=== PATIENT | female | born 1955 | race Caucasian/White ===

== ENCOUNTER → 2019-05-07 15:20 | Oncology outpatient (ONC) | payer OTHER, SELFPAY ==
[2019-01-08 15:57] VITALS: BP 143/93; PULSE 80; RESP 20; TEMP 36.8; O2SAT 98
--- NOTE | 2019-01-08 16:13 | ONC.PN ---
PN -Subjective Interval history: Diagnosis: Marginal zone lymphoma involving the lung Previous treatment: 1. Six cycles of Treanda and Rituxan finishing September 2013 2. One cycle of maintenance Rituxan in 2013 stopping because of prolonged cytopenias Interval history: The patient is a 63-year-old woman who has been previously seen in [place]. She has a history of a marginal zone lymphoma with a large pulmonary mass. She was treated with chemotherapy in 2012 and 2013 and has been in remission ever since. Last summer, she was found to have some enlarging pulmonary nodules that were indeterminate. A needle biopsy in March showed evidence of inflammation but no evidence of a monoclonal B-cell or T-cell process by flow cytometry. Follow-up CT in June showed stable nodules. Since then, she has been feeling generally well. She denies any new aches or pains. No shortness of breath or cough. She has not noticed any adenopathy. Appetite and energy level have been stable. No fevers chills or sweats. She was found to have a recent sinus infection and has been on a course of Augmentin for that. Her other medications include bupropion and hydrochlorothiazide. Home Medications and Allergies Home Medications Medication Instructions Recorded Confirmed Type bupropion HCl [Wellbutrin SR] 150 mg BID 01/08/19 01/08/19 History hydrochlorothiazide 12.5 mg PO DAILY 01/08/19 01/08/19 History Allergies Allergy/AdvReac Type Severity Reaction Status Date / Time codeine AdvReac Rash Verified 01/08/19 15:40 simvastatin AdvReac Rash Verified 01/08/19 15:39 Exam Vital signs: Vital Signs Temp Pulse Resp BP Pulse Ox 01/08/19 15:57 98.2 F 80 20 143/93 H 98 Intake and Output 01/08/19 01/08/19 01/08/19 07:59 15:59 23:59 Other: Weight 85.3 kg Patient Weight 01/08/19 23:59 Weight 85.3 kg - Constitutional positive no acute distress, positive average body habitus - Routine HEENT Exam Head: Present: normocephalic, atraumatic Eye: Present: EOMI, PERRL. Absent: conjunctival icterus, scleral injection ENT: Present: mucous membranes moist, oropharynx clear - Routine Neck Exam Present: supple. Absent: lymphadenopathy, thyromegaly - Routine Chest/Breast/Axilla Exam Axillae: Absent: lymphadenopathy - Routine Respiratory Exam Present: Clear to auscultation bilaterally. Absent: rales, wheezes - Routine Cardiovascular Exam Present: RRR, S1, S2. Absent: murmur - Routine Abdominal Exam Present: soft, normoactive bowel sounds. Absent: tenderness, organomegaly, mass - Routine Extremities Exam Absent: cyanosis, clubbing, edema - Routine Skin Exam Present: intact. Absent: petechiae, rash - Routine Neurological Exam Present: alert, oriented X3 - Routine Psychiatric Exam Present: normal affect, normal thought process Assessment and Plan (1) Marginal zone B-cell lymphoma Current visit: Yes Status: Acute 63-year-old woman with a history of marginal zone lymphoma. She has no definite evidence of recurrence but does have indeterminate pulmonary nodules. She will be due for restaging CT. Will trying get that scheduled for her sometime within the month or 2. She return to clinic here after that for follow-up. If she does have evidence of progression, she may need a E another biopsy. If the nodules appear stable, we will discontinue to follow expectantly.
--- NOTE | 2019-01-22 16:26 | ONC.SCHED ---
Got a call from [facility] and they received the CT results from [facility] for this patient in error. I called [facility] and they are faxing the results to us as Dr. Epstein is following her here. Dr. Epstein used to be in [place] so this is probably why the mix up.
--- NOTE | 2019-02-12 11:58 | ONC.SCHED ---
patient request to fax lab orders to her office fax, done. They had been faxed to [facility] in [place] but they were unable to find them so the patient wanted to hand carry them in. scanned in
[2019-02-18 13:31] VITALS: BP 136/77; PULSE 71; RESP 16; TEMP 36.7; O2SAT 98
--- NOTE | 2019-02-18 13:48 | ONC.PN ---
PN -Subjective Interval history: Diagnosis: Marginal zone lymphoma involving the lung Previous treatment: 1. Six cycles of Treanda and Rituxan finishing September 2013 2. One cycle of maintenance Rituxan in 2013 stopping because of prolonged cytopenias Interval history: The patient is a 63-year-old woman who has a history of a marginal zone lymphoma with a large pulmonary mass. She was treated with chemotherapy in 2012 and 2013 and has been in remission ever since. Last summer, she was found to have some enlarging pulmonary nodules that were indeterminate. A needle biopsy in March showed evidence of inflammation but no evidence of a monoclonal B-cell or T-cell process by flow cytometry. Since her last visit here, she has been feeling generally quite well. She denies any shortness of breath or cough. No chest pain. Appetite and energy level have been good. She has not noticed any adenopathy. No new aches or pains. She has had some increased diarrhea. She is not sure if it is related to changes in her diet. She tells me that she is scheduled for a colonoscopy in about a month. She is also planning a trip to [place] for a family reunion in the next couple weeks. She denies any other changes in her health. Her other medications include bupropion and hydrochlorothiazide. - Patient Self-Reported Symptoms SR Gastrointestinal issues: Change in bowel pattern, Diarrhea Home Medications and Allergies Home Medications Medication Instructions Recorded Confirmed Type bupropion HCl [Wellbutrin SR] 150 mg BID 01/08/19 02/18/19 History hydrochlorothiazide 12.5 mg PO DAILY 01/08/19 02/18/19 History Allergies Allergy/AdvReac Type Severity Reaction Status Date / Time codeine AdvReac Rash Verified 01/08/19 15:40 simvastatin AdvReac Rash Verified 01/08/19 15:39 Exam Vital signs: Vital Signs Temp Pulse Resp BP Pulse Ox 02/18/19 13:31 98.0 F 71 16 136/77 98 Intake and Output 02/17/19 02/18/19 02/18/19 23:59 07:59 15:59 Other: Weight 84.5 kg Patient Weight 02/18/19 23:59 Weight 84.5 kg - Constitutional positive no acute distress, positive average body habitus - Routine HEENT Exam Head: Present: normocephalic, atraumatic Eye: Present: EOMI, PERRL. Absent: conjunctival icterus, scleral injection ENT: Present: mucous membranes moist, oropharynx clear - Routine Neck Exam Present: supple. Absent: lymphadenopathy, thyromegaly - Routine Chest/Breast/Axilla Exam Axillae: Absent: lymphadenopathy - Routine Respiratory Exam Present: Clear to auscultation bilaterally. Absent: rales, wheezes - Routine Cardiovascular Exam Present: RRR, S1, S2. Absent: murmur - Routine Abdominal Exam Present: soft, normoactive bowel sounds. Absent: tenderness, organomegaly, mass - Routine Extremities Exam Absent: cyanosis, clubbing, edema - Routine Back/Spine Exam Back/Spine: Absent: vertebral tenderness - Routine Skin Exam Present: intact. Absent: rash - Routine Neurological Exam Present: alert, oriented X3 - Routine Psychiatric Exam Present: normal affect, normal thought process Assessment and Plan (1) Marginal zone B-cell lymphoma Current visit: Yes Status: Acute 63-year-old woman with a history of marginal zone lymphoma. Her recent CT she was slight increase in the size of her pulmonary nodules. There is no evidence of adenopathy or evidence of disease below the diaphragm. I think that this most likely does represent a recurrence of her lymphoma even or biopsy last year was negative. She is completely asymptomatic and her nodules are still relatively small. I think she can continue with a period of observation before she needs therapy for recurrent disease. She will return to clinic in about 3 months for follow-up. I would anticipate another CT scan in about 6 months unless new symptoms develop in the interim period
[2019-05-07 15:20] VITALS: BP 136/82; PULSE 77; RESP 18; TEMP 37; O2SAT 97
--- NOTE | 2019-05-07 15:39 | ONC.PN ---
PN -Subjective Interval history: Diagnosis: Marginal zone lymphoma involving the lung Previous treatment: 1. Six cycles of Treanda and Rituxan finishing September 2013 2. One cycle of maintenance Rituxan in 2013 stopping because of prolonged cytopenias Interval history: The patient is a 63-year-old woman who has a history of a marginal zone lymphoma with a large pulmonary mass. She was treated with chemotherapy in 2012 and 2013 and has been in remission ever since. Over the last year, she has had some enlarging pulmonary nodules that were indeterminate. A needle biopsy in March 2018 showed evidence of inflammation but no evidence of a monoclonal B-cell or T-cell process by flow cytometry. She has been on a watchful waiting approach since then. Since her last visit here, she has been feeling generally quite well. She denies any shortness of breath or cough. No chest pain. Appetite and energy level have been good. She has not noticed any adenopathy. No new aches or pains. She has had some increased diarrhea and is scheduled for colonoscopy later this month. She denies any other changes in her health. Her other medications include bupropion and hydrochlorothiazide although she has not been taking the hydrochlorothiazide. - Patient Self-Reported Symptoms SR Gastrointestinal issues: Change in bowel pattern, Diarrhea Home Medications and Allergies Home Medications Medication Instructions Recorded Confirmed Type bupropion HCl [Wellbutrin SR] 150 mg BID 01/08/19 02/18/19 History hydrochlorothiazide 12.5 mg PO DAILY 01/08/19 02/18/19 History Allergies Allergy/AdvReac Type Severity Reaction Status Date / Time codeine AdvReac Rash Verified 01/08/19 15:40 simvastatin AdvReac Rash Verified 01/08/19 15:39 Exam Vital signs: Vital Signs Temp Pulse Resp BP Pulse Ox 05/07/19 15:20 98.6 F 77 18 136/82 97 Intake and Output 05/06/19 05/07/19 05/07/19 23:59 07:59 15:59 Other: Weight 87.7 kg Patient Weight 05/07/19 23:59 Weight 87.7 kg - Constitutional positive no acute distress, positive average body habitus - Routine HEENT Exam Head: Present: normocephalic, atraumatic Eye: Present: EOMI, PERRL. Absent: conjunctival icterus, scleral injection ENT: Present: mucous membranes moist, oropharynx clear - Routine Neck Exam Present: supple. Absent: lymphadenopathy, thyromegaly - Routine Chest/Breast/Axilla Exam Axillae: Absent: lymphadenopathy - Routine Respiratory Exam Present: Clear to auscultation bilaterally. Absent: rales, wheezes - Routine Cardiovascular Exam Present: RRR, S1, S2. Absent: murmur - Routine Abdominal Exam Present: soft, normoactive bowel sounds. Absent: tenderness, organomegaly, mass - Routine Extremities Exam Absent: cyanosis, clubbing, edema - Routine Back/Spine Exam Back/Spine: Absent: vertebral tenderness - Routine Skin Exam Present: intact. Absent: petechiae, rash - Routine Neurological Exam Present: alert, oriented X3 - Routine Psychiatric Exam Present: normal affect, normal thought process Results - Labs CBC, CMP and LDH within normal limits of for mild elevation in her glucose at 110. Assessment and Plan (1) Marginal zone B-cell lymphoma Current visit: Yes Status: Acute 63-year-old woman with a history of marginal zone lymphoma. She is completely asymptomatic and has no obvious progression. She has had some indeterminate pulmonary nodules. She will continue with watchful waiting. She will return to clinic in 3 months for follow-up. She will be due for CT scan at that time.
--- NOTE | 2019-07-07 13:00 | ONC.SCHED ---
[facility] for CT have been updated to [facility] and faxed. Pt. will call them to schedule. Lab slip has been faxed to [facility] in [place] at [facility]. Pt. has been notified to get labs and CT done before fup appt. on 08/12/18.
--- NOTE | 2019-07-07 13:16 | ONC.SCHED ---
Move appt from 08/12/19 to 08/05/19 because patient wanted to be seen before the end of the year per note from Krysta to Dr. Epstein (scanned in), this is ok.
== END ==
PROVIDERS: PCP Family Medicine
DX: Z08 Encounter for follow-up examination after completed treatment for malignant neoplasm (principal); Z85.72 Personal history of non-Hodgkin lymphomas; R91.8 Other nonspecific abnormal finding of lung field
CPT/HCPCS: 99214